=== PATIENT | female | born 1960 | race American Indian/Alaskan Native ===

== ENCOUNTER 2020-12-14 13:29 | Emergency (ER) | payer BC ==
[2020-12-14 13:51] VITALS: BP 100/73
[2020-12-14] MEDS ORDERED: ACETAMINOPHEN 325 MG TAB PO ONE (13:52)
--- NOTE | 2020-12-14 13:53 | Emergency Department Report ---
ED Abdominal Pain HPI - General Chief Complaint: Abdominal Pain Stated Complaint: BACK PAINS Time Seen by Provider: 12/14/20 13:51 Source: patient Mode of arrival: Ambulatory Limitations: No Limitations - History of Present Illness Initial Comments: 60-year-old female with a past medical history of hypertension, diabetes, reactive airway disease currently on albuterol, and tobacco use presents to the ER today complaint of right lower quadrant abdominal pain. Patient states that his symptoms started about 1 week ago. She states that the pain is sharp in nature, and has been intermittent and radiates into her right lower back. She states that she been having alternating diarrhea and soft stools for the past week. At most she has had 2-3 episodes of diarrhea per day. She denies any blood in the diarrhea or mucus. She reports nausea but no vomiting. She denies any UTI symptoms or any abnormal vaginal discharge or any abnormal vaginal bleed ing. She is postmenopausal. She denies any ill contacts, recent travel, recent bad food intake or any antibiotic use in the past 3 weeks. She denies similar symptoms in the past. She states that she has never had a colonoscopy. MD Complaint: abdominal pain -: Gradual, week(s) (1) Location: RLQ - Related Data Previous Rx's Medication Instructions Recorded Last Taken Type Ibuprofen [Motrin] 600 mg PO Q8H PRN #30 tablet 12/14/20 Unknown Rx cephALEXin [Keflex] 500 mg PO Q8HR #21 cap 12/14/20 Unknown Rx Allergies Allergy/AdvReac Type Severity Reaction Status Date / Time No Known Allergies Allergy Unverified 12/14/20 13:51 ED Review of Systems ROS: Stated complaint: BACK PAINS Other details as noted in HPI Comment: All other systems reviewed and negative Respiratory: denies: cough, shortness of breath, wheezing Cardiovascular: denies: chest pain, palpitations Gastrointestinal: abdominal pain, nausea, diarrhea Genitourinary: as per HPI Musculoskeletal: denies: back pain, joint swelling, arthralgia Skin: denies: rash, lesions Neurological: denies: headache, weakness, paresthesias Psychiatric: denies: anxiety, depression ED Past Medical Hx - Past Medical History Previous Medical History?: Yes Hx Hypertension: Yes Hx Diabetes: Yes Hx Asthma: Yes - Social History Smoking Status: Current Every Day Smoker Substance Use Type: None - Medications Home Medications: Home Medications Medication Instructions Recorded Confirmed Last Taken Type Ibuprofen [Motrin] 600 mg PO Q8H PRN #30 tablet 12/14/20 Unknown Rx cephALEXin [Keflex] 500 mg PO Q8HR #21 cap 12/14/20 Unknown Rx ED Physical Exam - General Limitations: No Limitations General appearance: alert, in no apparent distress - Head Head exam: Present: atraumatic, normocephalic, normal inspection - Respiratory Respiratory exam: Present: normal lung sounds bilaterally. Absent: respiratory distress - Cardiovascular Cardiovascular Exam: Present: regular rate, normal rhythm, normal heart sounds - GI/Abdominal GI/Abdominal exam: Present: soft, tenderness (Right lower quadrant withou rebound or rigidity or guarding). Absent: distended - Neurological Exam Neurological exam: Present: alert, oriented X3, CN II-XII intact, normal gait - Psychiatric Psychiatric exam: Present: normal affect, normal mood - Skin Skin exam: Present: intact ED Course Vital Signs 12/14/20 12/14/20 13:41 17:16 Temperature 98.4 F 98.4 F Pulse Rate 103 H 103 H Respiratory 18 18 Rate Blood Pressure 100/73 Blood Pressure 100/73 [Left] O2 Sat by Pulse 96 96 Oximetry ED Medical Decision Making - Lab Data Result diagrams: 12/14/20 14:35 12/14/20 14:35 - Radiology Data Findings [facility] [address] [place] [address] Cat Scan Report Signed Patient: LISSETT DORANTES MR#: [id number] : 1960 Acct:[id number] Age/Sex: 60 / F ADM Date: 12/14/20 Loc: ED Attending Dr: Ordering Physician: GRABIEL PERRY Date of Service: 12/14/20 Procedure(s): CT abdomen pelvis w con Accession Number(s): [id number] cc: GRABIEL PERRY CT ABDOMEN AND PELVIS WITH CONTRAST HISTORY: Right lower quadrant pain. COMPARISON: None TECHNIQUE: Routine abdominal and pelvic CT exam performed following intravenous contrast administration.. All CT scans at this location are performed using CT dose reduction for ALARA by means of automated exposure control. FINDINGS: CT ABDOMEN: Lung Bases: No significant abnormality. Liver: No significant abnormality. Biliary: Small stone in the gallbladder without evidence of acute cholecystitis. Spleen: No significant abnormality. Unenlarged. Pancreas: No significant abnormality. Adrenals: No significant abnormality. Kidneys: No significant abnormality. Lymphatics: No lymphadenopathy. Vasculature: Atherosclerotic but nonaneurysmal abdominal aorta. Bowel/Peritoneum: No significant abnormality. No free air. No free fluid. Appendix not visualized. No pericecal inflammation. CT PELVIC: : No significant abnormality. Lymphatics: No lymphadenopathy. Osseous Structures: No aggressive appearing osseous lesions. Additional Findings: None IMPRESSION: 1. No acute findings. 2. Cholelithiasis without evidence of acute cholecystitis. Signer Name: Zaheer Etienne MD Signed: 12/14/2020 4:47 PM Workstation Name: [id number] Transcribed By: WHIT Dictated By: Zaheer Etienne MD Electronically Authenticated By: Zaheer Etienne MD Signed Date/Time: 12/14/201646 DD/ 44 TD/TT: - Medical Decision Making Labs, CT reviewed. Work-up today shows gallstones without any signs of acute cholecystitis, no UTI. Patient currently resting comfortably in the room, she does not appear to be in any acute distress. She is well-appearing, and nontoxic and appears well-hydrated. Vital signs are stable. No further work- up, admission or emergent consult indicated at this time. Discussed CT and lab results with patient. Discussed suspected diagnosis and treatment plan with patient. Patient expressed understanding of instructions and agree with plan. Patient was stable at time of discharge. Critical care attestation.: If time is entered above; I have spent that time in minutes in the direct care of this critically ill patient, excluding procedure time. ED Disposition Clinical Impression: UTI (urinary tract infection), Cholelithiasis Disposition: DC-01 TO HOME OR SELFCARE Is pt being admited?: No Does the pt Need Aspirin: No Condition: Stable Instructions: Cholelithiasis, Urinary Tract Infection, Adult, [id number], Abdominal Pain (ED) Additional Instructions: Take the antibiotic as prescribed. You can take tylenol or motrin for pain. Avoid fried, fatty and greasy foods as this can flare up your gallbladder. Drink lots of water. Follow up with PCP and or general surgeon listed on your d/c instructions. Return to ED if symptoms changes or worsens. Prescriptions: cephALEXin [Keflex] 500 mg PO Q8HR #21 cap Ibuprofen [Motrin] 600 mg PO Q8H PRN #30 tablet PRN Reason: Pain Referrals: PATIRCA LAGUNAS JR, MD [Primary Care Provider] - 3-5 Days NADYA CORTES DO [Staff Physician] - 3-5 Days Time of Disposition: 17:01
[2020-12-14 15:01] LABS: Bilirubin,Urine NEG (Negative); Blood,Urine MOD (Negative); Color,Urine Yellow (Yellow); Mucus,Urine FEW /HPF; Protein,Urine <15 mg/dL mg/dL (Negative); Urobilinogen,Urine < 2.0 mg/dL (<2.0)
[2020-12-14 15:05] LABS: Basophils % (Auto) 0.7 % (0.0-1.8); Eosinophils # (Auto) 0.2 K/mm3 (0.0-0.4); Eosinophils % (Auto) 3.3 % (0.0-4.3); Hematocrit 50.6 % (30.3-42.9); Hemoglobin 17.1 gm/dl (10.1-14.3); Lymphocytes # (Auto) 1.8 K/mm3 (1.2-5.4); Lymphocytes % (Auto) 29.2 % (13.4-35.0); Mean Corpuscular HGB Conc 34 % (30-34); Mean Corpuscular Volume 99 fl (79-97); Monocytes # (Auto) 0.7 K/mm3 (0.0-0.8); Platelet Count 272 K/mm3 (140-440); Red Blood Count 5.09 M/mm3 (3.65-5.03); Red Cell Distribution Width 13.5 % (13.2-15.2)
[2020-12-14 15:29] LABS: Alanine Aminotransferase 17 units/L (7-56); Albumin 4.6 g/dL (3.9-5); Blood Urea Nitrogen 12 mg/dL (7-17); Hemolysis Index 4
[2020-12-14 15:38] LABS: BUN/Creatinine Ratio 17; Bilirubin,Direct < 0.2 mg/dL (0-0.2)
--- NOTE | 2020-12-14 16:51 | Cat Scan Report ---
CT ABDOMEN AND PELVIS WITH CONTRAST HISTORY: Right lower quadrant pain. COMPARISON: None TECHNIQUE: Routine abdominal and pelvic CT exam performed following intravenous contrast administrat ion.. All CT scans at this location are performed using CT dose reduction for ALARA by means of autom ated exposure control. FINDINGS: CT ABDOMEN: Lung Bases: No significant abnormality. Liver: No significant abnormality. Biliary: Small stone in the gallbladder without evidence of acute cholecystitis. Spleen: No significant abnormality. Unenlarged. Pancreas: No significant abnormality. Adrenals: No significant abnormality. Kidneys: No significant abnormality. Lymphatics: No lymphadenopathy. Vasculature: Atherosclerotic but nonaneurysmal abdominal aorta. Bowel/Peritoneum: No significant abnormality. No free air. No free fluid. Appendix not visualized. No pericecal inflammation. CT PELVIC: : No significant abnormality. Lymphatics: No lymphadenopathy. Osseous Structures: No aggressive appearing osseous lesions. Additional Findings: None IMPRESSION: 1. No acute findings. 2. Cholelithiasis without evidence of acute cholecystitis. Signer Name: Zaheer Etienne MD Signed: 12/14/2020 4:47 PM Workstation Name: [id number]
== END 2020-12-14 17:17 | disposition home or self-care (01) ==
LOC: ED 13:29
DX: K80.20 Calculus of gallbladder without cholecystitis without obstruction (principal); N39.0 Urinary tract infection, site not specified; I10 Essential (primary) hypertension; E11.9 Type 2 diabetes mellitus without complications; J45.909 Unspecified asthma, uncomplicated; F17.200 Nicotine dependence, unspecified, uncomplicated; Z79.899 Other long term (current) drug therapy
CPT/HCPCS: 36415; 74177; 80048; 80076; 81001; 83690; 84703; 85025; 87086; 99284; Q9967